=== PATIENT | female | born 1985 | race Caucasian/White ===

== ENCOUNTER → 2016-09-21 | Outpatient (CLI) | payer BC ==
--- NOTE | 2016-09-21 19:06 | Diagnostic Imaging Report ---
CLINICAL INDICATION: Patient with history of thyroid nodule. EXAM: Thyroid ultrasound. COMPARISON: None. FINDINGS: There is a heterogeneous hypo/isoechoic nodule in the inferior pole of the right thyroid gland which measures 1.1 cm x 0.8 cm x 1.1 cm and demonstrates minimal central Doppler flow. Remainder of the thyroid gland shows no evidence of nodules. The thyroid gland is otherwise homogeneous and normal in size and shape. The right and left thyroid gland regions measure 4.9 cm x 2.0 cm x 1.5 cm and 3.3 cm x 0.9 cm x 0.9 cm, respectively, in craniocaudal x AP x width dimensions. The isthmus measures roughly 3 mm. IMPRESSION: 1: There is a heterogeneous 1.1 cm nodule in the inferior pole of the right thyroid gland. 2: Otherwise, the remainder of the thyroid gland is unremarkable. Dictated by: Dictated on workstation # [id number]
== END ==
LOC: RAD 13:18
PROVIDERS: ATTEND Family Medicine
DX: E04.1 Nontoxic single thyroid nodule (principal)
CPT/HCPCS: 76536

== ENCOUNTER → 2023-04-07 | Outpatient (CLI) | payer BC ==
--- NOTE | 2023-04-07 16:53 | Diagnostic Imaging Report ---
INDICATION: Supervision normal TECHNIQUE: Multiple real-time grayscale images were obtained over the gravid uterus. COMPARISON: None FINDINGS: Single viable intrauterine currently in a transverse presentation. Amount of amniotic fluid is normal, index 13.6 cm. Placenta anterior/inferior, without evidence for previa. Visualized anatomical structures including the kidneys, bladder, stomach, intracranial structures, four-chamber heart, three-vessel cord and insertion site, spine and extremities appearing unremarkable. Cervical length 4.6 cm. Biometrical measurements are as follows: Biparietal 5.04 cm, age 21 weeks 2 days. Head circumference 18.46 cm, age 20 weeks 6 days. Abdominal circumference 17.01 cm, age 22 weeks 0 days. Femur length 3.32 cm, age 20 weeks 3 days. Sonographic estimate age: 21 weeks 1 days. Sonographic estimated date of delivery: 08/17/2023. Estimated Weight: 408 gm (+/- 60 gm). LMP percentile: 91%. heart rate: 160 beats per minute. number: 1 of 1. IMPRESSION: 1. Single viable intrauterine , currently in a transverse presentation. 2. Sonographic estimated age 21 weeks 1 day, with an estimated date of delivery 08/17/2023. 3. No sonographic abnormalities demonstrated at this time. Dictated by: Dictated on workstation # [id number]
== END ==
LOC: RAD 14:51
PROVIDERS: ATTEND Nurse Practitioner Women's Health
DX: Z34.02 Encounter for supervision of normal first pregnancy, second trimester (principal); Z3A.21 21 weeks gestation of pregnancy
CPT/HCPCS: 76805